=== PATIENT | female | born 1945 | race Caucasian/White ===

== ENCOUNTER 2025-06-19 15:53 | Emergency (ER) | payer MEDICARE ==
[~2025-06-19] VITALS: Ht 152.4 cm; Wt 58.5 kg
[2025-06-19 16:10] VITALS: RESP 18; TEMP 98.2
[2025-06-19 18:00] VITALS: PULSE 72; O2SAT 97
== END 2025-06-19 18:41 | disposition home or self-care (01) ==
LOC: ER 16:24
DX: M25.561 Pain in right knee (principal); S09.90XA Unspecified injury of head, initial encounter; W22.09XA Striking against other stationary object, initial encounter; W01.0XXA Fall on same level from slipping, tripping and stumbling without subsequent striking against object, initial encounter; Y92.89 Other specified places as the place of occurrence of the external cause; I10 Essential (primary) hypertension; E78.5 Hyperlipidemia, unspecified; E03.9 Hypothyroidism, unspecified
CPT/HCPCS: 99282